=== PATIENT | male | born 1960 | race Caucasian/White ===

== ENCOUNTER 2023-04-21 09:26 | Emergency (ER) | payer OTHER, BC ==
[2023-04-21] MEDS ORDERED: Tetracaine HCl/PF 0.5% 4 ML Bottle EYEBOTH ONE (09:44)
[2023-04-21] MEDS ORDERED: Erythromycin Base 0.5% Ophth Oint 1 GM Tube EYEBOTH ONE (10:17)
[2023-04-21 12:07] VITALS: BP 154/84; PULSE 70
== END 2023-04-21 10:57 | disposition home or self-care (01) ==
LOC: MW.ED 09:26
DX: H16.8 Other keratitis (principal); I10 Essential (primary) hypertension; Z79.899 Other long term (current) drug therapy
CPT/HCPCS: 99283; A9270; J3490